=== PATIENT | male | born 1950 | race Caucasian/White ===

== ENCOUNTER 2020-11-04 23:28 | Inpatient (IN) | payer MEDICARE ==
[~2020-11-04] VITALS: Ht 180.3 cm; Wt 102.0 kg
[2020-11-04] MEDS ORDERED: ASPIRIN 325 MG TABLET PO ONE (23:45)
[2020-11-04] MEDS ORDERED: DEXAMETHASONE SOD PHOS 10 MG/ML VIAL. IVP ONE (23:45)
[2020-11-04] MEDS ORDERED: IOHEXOL 350 MG/ML 100 ML VIAL. IV ONE (23:45)
[2020-11-04] MEDS ORDERED: IV NORMAL SALINE 1,000ML 1,000 ML IV ONE (23:45)
--- NOTE | 2020-11-04 23:59 | EKG ---
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
[2020-11-05] MEDS ORDERED: ACETAMINOPHEN 500 MG TABLET PO ONE
[2020-11-05] MEDS ORDERED: PIPERACILLIN/TAZOBACTAM 4.5 GM in IV NORMAL SALINE 50ML 50 ML IV ONE
[2020-11-05] MEDS ORDERED: IV NORMAL SALINE 50ML 50 ML ONE (00:25)
[2020-11-05] MEDS ORDERED: PIPERACILLIN/TAZOBACTAM 4.5 GM VIAL IV ONE ×2 (00:25→00:26)
[2020-11-05 00:40] LABS: BASO % 1 % (0-3); EOS # 0.1 x10^3/uL (0.0-0.7); EOS % 1 % (0-3); HEMATOCRIT 42.5 % (39.0-53.0); HEMOGLOBIN 14.4 g/dL (13.0-17.5); LYMPH % 14 % (24-48); MEAN CORPUSCULAR HEMOGLOBIN 31 pg (25-35); MEAN CORPUSCULAR HGB CONC 34 g/dL (31-37); MEAN CORPUSCULAR VOLUME 92 fL (79-100); MONO # 0.7 x10^3/uL (0.0-1.1); MONO % 9 % (0-9); NEUT # 5.7 x10^3uL (1.8-7.7); NEUT % 76 % (31-73); PLATELET COUNT 202 x10^3/uL (140-400); RED BLOOD COUNT 4.61 x10^6/uL (4.30-5.70); RED CELL DISTRIBUTION WIDTH 14.2 % (11.5-14.5); WHITE BLOOD COUNT 7.5 x10^3/uL (4.0-11.0)
[2020-11-05 00:51] LABS: CALCIUM 8.8 mg/dL (8.5-10.1); CREATININE 0.9 mg/dL (0.7-1.3); GFR 82.9; POTASSIUM 3.9 mmol/L (3.5-5.1)
[2020-11-05 01:08] LABS: ALBUMIN/GLOBULIN RATIO 1.1 (1.0-1.7); MAGNESIUM 1.8 mg/dL (1.8-2.4); TOTAL BILIRUBIN 0.6 mg/dL (0.2-1.0); TOTAL PROTEIN 7.6 g/dL (6.4-8.2)
--- NOTE | 2020-11-05 01:25 | PHYS DOC ---
General Adult EDM: Chief Complaint: SHORTNESS OF BREATH HPI: HPI: Patient is a [age] year old [sex] who presents with [] Review of Systems: Review of Systems: Constitutional: Denies fever or chills Eyes: Denies redness or eye pain HENT: Denies nasal congestion or sore throat Respiratory: Denies cough or shortness of breath Cardiovascular: Denies chest pain or palpitations GI: Denies abdominal pain, nausea, or vomiting : Denies dysuria or hematuria Musculoskeletal: Denies back pain or joint pain Integument: Denies rash or skin lesions Neurologic: Denies headache, focal weakness or sensory changes Complete systems were reviewed and found to be within normal limits, except as documented in this note. Current Medications: Current Meds: Current Medications Medications (Trade) Dose Ordered Sig/Jessa Start Time Stop Time Status Last Admin Dose Admin Acetaminophen (Tylenol) 500 mg 1X ONCE 11/05/20 00:00 11/05/20 00:15 DC 11/05/20 00:29 500 MG Aspirin (Ysabel Aspirin) 325 mg 1X ONCE 11/04/20 23:45 11/05/20 00:15 DC 11/05/20 00:29 325 MG Dexamethasone Sodium Phosphate (Decadron) 10 mg 1X ONCE 11/04/20 23:45 11/05/20 00:15 DC 11/05/20 00:29 10 MG Iohexol (Omnipaque 350 Mg/ml) 100 ml 1X ONCE 11/04/20 23:45 11/05/20 00:15 DC Piperacillin Sod/ Tazobactam Sod (Zosyn) 4.5 gm STK-MED ONCE 11/05/20 00:26 11/05/20 00:26 DC Piperacillin Sod/ Tazobactam Sod 4.5 gm/Sodium Chloride 50 ml @ 100 mls/hr 1X ONCE 11/05/20 00:00 11/05/20 00:29 DC Sodium Chloride 50 ml @ As Directed STK-MED ONCE 11/05/20 00:25 11/05/20 00:25 DC Allergies: Allergies: Allergies Coded Allergies Type Severity Reaction Last Updated Verified No Known Drug Allergies 11/04/20 No Physical Exam: PE: Constitutional: Well developed, well nourished, no acute distress, non-toxic appearance HENT: Normocephalic, atraumatic Eyes: PERRL, EOMI, conjunctiva normal, no discharge Neck: Normal range of motion, no tenderness, supple Lungs & Thorax: No respiratory distress, equal chest rise and fall Abdomen: Soft, no tenderness Skin: Warm, dry, no erythema, no rash Back: No tenderness, no CVA tenderness Extremities: No tenderness, ROM intact, no edema Neurologic: Alert and oriented X 3, normal motor function, normal sensory function, no focal deficits noted Psychologic: Affect normal, judgment normal Current Patient Data: Labs: Laboratory Tests Test 11/04/20 23:42 White Blood Count 7.5 x10^3/uL (4.0-11.0) Red Blood Count 4.61 x10^6/uL (4.30-5.70) Hemoglobin 14.4 g/dL (13.0-17.5) Hematocrit 42.5 % (39.0-53.0) Mean Corpuscular Volume 92 fL (79-100) Mean Corpuscular Hemoglobin 31 pg (25-35) Mean Corpuscular Hemoglobin Concent 34 g/dL (31-37) Red Cell Distribution Width 14.2 % (11.5-14.5) Platelet Count 202 x10^3/uL (140-400) Neutrophils (%) (Auto) 76 % (31-73) H Lymphocytes (%) (Auto) 14 % (24-48) L Monocytes (%) (Auto) 9 % (0-9) Eosinophils (%) (Auto) 1 % (0-3) Basophils (%) (Auto) 1 % (0-3) Neutrophils # (Auto) 5.7 x10^3uL (1.8-7.7) Lymphocytes # (Auto) 1.0 x10^3/uL (1.0-4.8) Monocytes # (Auto) 0.7 x10^3/uL (0.0-1.1) Eosinophils # (Auto) 0.1 x10^3/uL (0.0-0.7) Basophils # (Auto) 0.0 x10^3/uL (0.0-0.2) Sodium Level 138 mmol/L (136-145) Potassium Level 3.9 mmol/L (3.5-5.1) Chloride Level 103 mmol/L (98-107) Carbon Dioxide Level 21 mmol/L (21-32) Anion Gap 14 (6-14) Blood Urea Nitrogen 14 mg/dL (8-26) Creatinine 0.9 mg/dL (0.7-1.3) Estimated GFR (Cockcroft-Gault) 82.9 BUN/Creatinine Ratio 16 (6-20) Glucose Level 103 mg/dL (70-99) H Lactic Acid Level 1.3 mmol/L (0.4-2.0) Calcium Level 8.8 mg/dL (8.5-10.1) Magnesium Level 1.8 mg/dL (1.8-2.4) Total Bilirubin 0.6 mg/dL (0.2-1.0) Aspartate Amino Transferase (AST) 35 U/L (15-37) Alanine Aminotransferase (ALT) 44 U/L (16-63) Alkaline Phosphatase 76 U/L (46-116) Creatine Kinase 388 U/L (39-308) H Creatine Kinase MB (Mass) 5.6 ng/mL (0.0-3.6) H Creatine Kinase MB Relative Index 1.4 % (0-4) Troponin I Quantitative < 0.017 ng/mL (0-0.055) ND-Vas-Z-Type Natriuretic Peptide 212 pg/mL (0-124) H Total Protein 7.6 g/dL (6.4-8.2) Albumin 4.0 g/dL (3.4-5.0) Albumin/Globulin Ratio 1.1 (1.0-1.7) Vital Signs: Vital Signs Date Time Temp Pulse Resp B/P (MAP) Pulse Ox O2 Delivery O2 Flow Rate FiO2 11/05/20 00:27 94 16 126/81 (96) 95 Nasal Cannula 4.0 11/04/20 23:28 103.0 EKG: EKG: @2336 Sinus tachycardia at 105bpm, occasional PVC, no ST elevation, QRS 78ms, QT/QTc 322/429ms Radiology/Procedures: Radiology/Procedures: PROCEDURE: CT ANGIOGRAPHY CHEST INDICATION: Reason: dyspnea, hypoxia, eval for PE Omni 350 100cc / Spl. Instructions: / History: COMPARISON: July 17, 2020 TECHNIQUE: Axial CT images obtained through the chest. Intravenous contrast utilized. An giogram 3D images processed per protocol. One or more of the following individualized dose reduction techniques were utilized for this examination: 1. Automated exposure control; 2. Adjustment of the mA and/or kV according to patient size; 3. Use of iterative reconstruction technique. FINDINGS: Severe emphysematous changes to the bilateral lungs including large bullous disease at the right greater than left lung apex. Dependent opacities at the left lung posteriorly with groundglass and nodular component. There are some reticulation at lung bases. There are some scattered prominent lymph nodes within the mediastinum. Coronary artery calcific atherosclerosis. Splenic calcified granulomas. Scattered calcific atherosclerosis without thoracic aortic aneurysm. Coronary artery calcific atherosclerosis. Prominent lymph nodes in the hilum. Degenerative changes of the spine. Osseous demineralization. No central pulmonary embolus IMPRESSION: No central pulmonary embolus. Severe emphysematous changes including large bulla at the right greater than left lung apex. Patchy opacity at the left lower lung could be infectious or inflammatory in nature but follow-up could be obtained to ensure that this resolves given that a portion of this is nodular in nature. Lymphadenopathy is seen within the bilateral pulmonary hilum. Degenerative changes of the spine as well as compression deformity at T8 again seen Electronically signed by: Urbano Florez MD (11/05/2020 2:01 AM) [id number] Heart Score: C/O Chest Pain: N/A Course & Med Decision Making: Course & Med Decision Making Pertinent Labs and Imaging studies reviewed. (See chart for details) Patient requiring admission for further evaluation and treatment. Discussed with Dr. Olivarez (hospitalist) who is in agreement with admission. Discussed findings and plan with patient, who acknowledges understanding and agreement. Dragon Disclaimer: Dragon Disclaimer: This electronic medical record was generated, in whole or in part, using a voice recognition dictation system. Departure Departure: Impression: Primary Impression: Respiratory failure Qualified Codes: J96.01 - Acute respiratory failure with hypoxia Additional Impressions: Suspected 2019 novel coronavirus infection Hypoxia COPD (chronic obstructive pulmonary disease) Qualified Codes: J44.9 - Chronic obstructive pulmonary disease, unspecified Disposition: 09 ADMITTED INPATIENT Admitting Physician: Omari Olivarez Condition: STABLE Referrals: PCP,UNKNOWN (PCP) COVID-19 Assessment COVID-19 Patient Risks: Age 65 or older: Yes Sign of co-morbidity: Yes Exp to person + for COVID: No Exp to PUI: No Travel from affected area: No Lower respiratory symptoms: Yes Fever: Yes Other: Yes PPE Use: Full PPE with N95 mask or PAPR: Yes Critical Care Time Critical care time was 30 minutes which includes time at bedside, spent in discussion of patient's care with specialists and/or family members, with interpretation of laboratory and/or radiological studies and is exclusive of procedures. LIZZETTE THAPA DO Nov 05, 2020 01:24
[2020-11-05 01:28] LABS: BACTERIA,URINE 0 /HPF (0-FEW); BILIRUBIN,URINE NEG (NEG); CLARITY,URINE CLEAR; COLOR,URINE YELLOW; GLUCOSE,URINE NEG (NEG); NITRITE,URINE NEG (NEG); RBC,URINE RARE /HPF (0-2); SQUAMOUS EPITHELIAL CELL,UR OCC /LPF; UROBILINOGEN,URINE 0.2 mg/dL (0.2 mg/dL); WBC,URINE 0 /HPF (0-4)
[2020-11-05] MEDS ORDERED: ONDANSETRON PF 4 MG/2 ML VIAL. IVP PRN (01:30)
[2020-11-05] MEDS ORDERED: IV NORMAL SALINE 1,000ML 1,000 ML IV SCH (01:30)
[2020-11-05] MEDS ORDERED: ACETAMINOPHEN 325 MG TABLET PO PRN (01:30)
[2020-11-05] MEDS ORDERED: CONTRAST GIVEN. MC PRN (01:30)
[2020-11-05 01:52] LABS: BGAS PH 7.4 (7.35-7.46)
--- NOTE | 2020-11-05 02:04 | RAD ---
INDICATION: Reason: dyspnea, hypoxia, eval for PE Omni 350 100cc / Spl. Instructions: / History: COMPARISON: July 17, 2020 TECHNIQUE: Axial CT images obtained through the chest. Intravenous contrast utilized. Angiogram 3D images proce ssed per protocol. One or more of the following individualized dose reduction techniques were utilized for this examinat ion: 1. Automated exposure control; 2. Adjustment of the mA and/or kV according to patient size; 3 . Use of iterative reconstruction technique. FINDINGS: Severe emphysematous changes to the bilateral lungs including large bullous disease at the right gre ater than left lung apex. Dependent opacities at the left lung posteriorly with groundglass and nodular component. There are some reticulation at lung bases. There are some scattered prominent lymph nodes within the mediastinum. Coronary artery calcific atherosclerosis. Splenic calcified granulomas. Scattered calcific atherosclerosis without thoracic aortic aneurysm. Coronary artery calcific atherosclerosis. Prominent lymph nodes in the hilum. Degenerative changes of the spine. Osseous demineralization. No central pulmonary embolus IMPRESSION: No central pulmonary embolus. Severe emphysematous changes including large bulla at the right greater than left lung apex. Patchy opacity at the left lower lung could be infectious or inflammatory in nature but follow-up cou ld be obtained to ensure that this resolves given that a portion of this is nodular in nature. Lymphadenopathy is seen within the bilateral pulmonary hilum. Degenerative changes of the spine as well as compression deformity at T8 again seen Electronically signed by: Urbano Florez MD (11/05/2020 2:01 AM) [id number]
--- NOTE | 2020-11-05 02:35 | NUR ---
The patient, ZION WOOD, 70 y/o, M admitted by CAROLYN HUSAIN MD, was given written information regarding hospital policies, unit procedures and contact persons. Valuables were checked and logged. Call light in reach.
[2020-11-05 03:00] VITALS: BP 144/97
[2020-11-05 05:54] VITALS: BP 141/87
[2020-11-05] MEDS ORDERED: CLOP75TA PO (09:53)
[2020-11-05] MEDS ORDERED: FLUT9.9S NS (09:53)
[2020-11-05] MEDS ORDERED: ASPI-630 PO (09:53)
[2020-11-05] MEDS ORDERED: FLUT1BLS3 IH (09:53)
[2020-11-05] MEDS ORDERED: ATOR40TA59 PO (09:53)
[2020-11-05] MEDS ORDERED: BISO5TAB8 PO (09:53)
[2020-11-05] MEDS ORDERED: MONT10TA80 PO (09:53)
[2020-11-05] MEDS ORDERED: ALBU2.5V8 IH (09:53)
[2020-11-05] MEDS ORDERED: PANT40TA3 PO (09:53)
[2020-11-05 11:26] VITALS: BP 151/78
[2020-11-05] MEDS ORDERED: ALBUTEROL SULFATE 2.5 MG/3 ML NEBU. IH PRN (14:15)
[2020-11-05] MEDS ORDERED: PIP/TAZO PER PHARMACY MC PRN (14:15)
--- NOTE | 2020-11-05 14:54 | HP ---
ADMIT DATE: 11/05/2020 HISTORY OF PRESENT ILLNESS: The patient is a 70-year-old male patient who presented to the emergency room of [facility] with a complaint of shortness of breath, cough with scanty yellowish to whitish sputum as well as shortness of breath that has worsened over the last 3 days. He apparently has completed his COVID-19 vaccination on 05/31/2020 and 06/19/2020 and apparently he has been complaining of shortness of breath for months now and was investigated by the social service technician including Dr. Lino at [facility] who recommended evaluation by the furniture decals inspector. He apparently has a stent placed in about May of this year; however, placement of the stent did not really improve his shortness of breath and he was seen by another social service technician at [facility] who again stated that his shortness of breath is not related to his COPD and recommended a second opinion. He has an appointment to be seen by a furniture decals inspector at [facility] in December of this year and was hoping to be seen by another furniture decals inspector sooner. He was extensively investigated in the Emergency Room and has had lab work, in fact, his white cell count was normal at 7000. His chemistry was unremarkable and his first set of cardiac enzyme was normal. His blood gases was also unremarkable. His CT angio of the chest showed that the patient has no central pulmonary embolus; however, she has severe emphysematous changes including large bulla at the right greater than left lung apex, patchy opacity at the left lower lung, could be infectious or inflammatory in nature, but followup could be obtained to ensure that this resolves given that a portion of this is nodular in nature. He has also had lymphadenopathy seen within the bilateral pulmonary hilum, degenerative changes of the spine as well as compression deformity at T8 thoracic vertebra. The patient was admitted with acute hypoxic respiratory failure, community-acquired pneumonia, COPD exacerbation and questionable suspected 2019 novel coronavirus infection, although this is probably less likely given that he is already vaccinated and the picture is more of a localized pneumonia rather than the diffuse nature nodular opacities that is seen with the COVID-19. PAST MEDICAL HISTORY: Significant for chronic obstructive pulmonary disease diagnosed about 10 years ago. He has hypertension, hepatitis C that was diagnosed 9 years ago and was treated with 12 weeks of treatment at [facility]. He is also known to have coronary artery disease status post PCI done twice, one about 12 years ago and one was this year. PAST SURGICAL HISTORY: Significant for PCI and stent deployment x2, tonsillectomy, appendectomy. ALLERGIES: He has no known drug allergies. MEDICATIONS: He is currently on following medications: He is on albuterol sulfate 1 puff 4 times a day, Plavix 75 mg once a day, atorvastatin calcium 40 mg at bedtime, bisoprolol 2.5 mg daily, aspirin 81 mg once a day. He is on Trelegy Ellipta 1 puff once a day, Singulair 10 mg once a day and Flonase 2 sprays to each nostril once a day, Protonix 40 mg once a day. FAMILY HISTORY: He has five brothers and three sisters, three of his older brothers have heart disease and all his three sisters are still alive. His father at age of 89 and mother at the age of 89, apparently has hypertension and CVA. SOCIAL HISTORY: He is , has a son and a daughter. He started smoking when he was 12 years old, continued to smoke, although he is now on Chantix and he has 1 pack for almost a week. He does not use any drugs or drink alcohol. 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 REVIEW OF SYSTEMS: The patient denied any blurring of vision, cataracts, glaucoma, or macular degeneration. Denied any earache, tinnitus or sensorineural deafness. Denied any nosebleed, stuffy nose or postnasal drip. Denied any sore throat, sore tongue, toothache, hoarseness of voice or difficulty swallowing. Denied any nausea, vomiting, diarrhea or constipation. Denied any hematemesis, melena or hematochezia. Denies any dysuria, frequency or hematuria. Did complain of chest pain, shortness of breath as well as orthopnea, cough with yellowish sputum, also had fever up to 103 Fahrenheit on admission. PHYSICAL EXAMINATION: GENERAL: On examining him, he looked well and was clearly in no apparent respiratory distress. There is no pallor, jaundice, cyanosis or thyromegaly. No jugular venous distention. No lower limb edema. VITAL SIGNS: His heart rate was 102, blood pressure was 142/83, temperature was 103, respiratory rate was 18 and oxygen saturation was 95% on 4 liters of oxygen. HEAD, EYES, EARS, NOSE, EYES, NOSE, AND THROAT: Normocephalic, atraumatic. NECK: Supple. HEART: Normal first and second heart sounds, no gallop or murmur. CHEST: Shows central trachea, equally reduced expansion, reduced air entry, vesicular breath sounds. I could not really appreciate any crepitation or rhonchi anteriorly. He has few crepitation bilaterally posteriorly. I could not appreciate any rhonchi. ABDOMEN: Distended, soft, nontender. NEUROLOGIC: He is awake, alert, responding appropriately. Cranial nerves intact. He moves extremities without difficulty. He ambulates without assistance or assistive devices. LABORATORY DATA: His white cell count was 7500, hemoglobin 14, hematocrit 42, MCV 92 and platelet count of 202,000. His chemistry showed a serum sodium 138, potassium 3.9, chloride 103, bicarbonate 21, anion gap of 14, BUN 14, creatinine 0.9. Estimated GFR was 82 mL per minute. His glucose 103, lactic acid was 1.3. Calcium was 8.8, magnesium was 1.8. Total bilirubin, AST, ALT, alkaline phosphatase were normal. Total protein was 7.6, albumin was 4. He has 2 sets of cardiac enzymes that ruled out myocardial infarction. His blood gas was 7.4, pCO2 of 30, pO2 of 78, bicarbonate 18 and oxygen saturation was 95% on FiO2 of 36%. His urinalysis essentially unremarkable. The CT angio of the chest showed no central pulmonary embolus., severe emphysematous changes including large bulla at the right greater than left apex, patchy opacity at the left lower lung, could be infectious, inflammatory in nature, but followup could be obtained to ensure that this resolves given that a portion of this is nodular in nature, lymphadenopathy is seen within the bilateral pulmonary hilum, degenerative changes of the spine as well as compression deformity of T8. PLAN: To continue with IV, reconcile all his medication. I will continue with IV antibiotic. Continue with inhalers and steroids and I will check urine for legionella and Streptococcus antigens. I would also consult the Cardiology team. We will get all his records from [facility] to be available to be reviewed by our furniture decals inspector. TEO DR: Cassie TID: [id number]
[2020-11-05 15:00] VITALS: BP 150/72
[2020-11-05] MEDS ORDERED: ALBUTEROL SULFATE 8GM INHALER. INH PRN (15:00)
[2020-11-05] MEDS: IPRATROPIUM/ALBUTEROL 20/100mcg/INH INHALER. INH SCH ×2 (16:00→20:00)
[2020-11-05] MEDS: PIPERACILLIN/TAZOBACTAM 3.375 GM in IV NORMAL SALINE 50ML 50 ML IV SCH ×2 (18:11→23:38)
--- NOTE | 2020-11-05 18:16 | CONS ---
DATE OF CONSULTATION: 11/05/2020 REASON FOR CONSULTATION: Shortness of breath. HISTORY OF PRESENT ILLNESS: The patient has a very prolonged cardiovascular history and he presented to the hospital in the setting of worsening dyspnea. He has severe bullous lung disease and follows with Dr. Lino at [facility] for the last 10 years or so. His dyspnea has been worsening over the last three to four months and actually was seen at [facility] due to his dyspnea and underwent a coronary angiogram and he reports that he had a PCI to the LAD. He also has a history of a previous PCI. Nonetheless, despite his PCI, he did not have any significant improvement. He also had got a second opinion at [facility] gyroscopic instrument mechanic and he was told that it is not his lung that was causing his breathing difficulty. He ultimately returned back to his ski instructor at [facility] who felt that his pulmonary disease was the likely source of his symptoms. Nonetheless, right now he reports compliance with his medications including Trelegy and antihypertensives and over the last few days has had worsening symptoms of cough and sputum production, which ultimately led him to be seen in the ER today. CT scan of the chest revealed significant bullous disease with possible pneumonia/inflammatory changes in the left apical lung and he was admitted for further evaluation and treatment. He has been started on antibiotics and steroid therapy. PAST MEDICAL HISTORY: 1. Severe COPD and bullous lung disease. 2. Hypertension. 3. Coronary artery disease, status post PCI. ALLERGIES: No known drug allergies. REVIEW OF SYSTEMS: Negative for 10 out of 14 systems reviewed, unless otherwise mentioned above in HPI. CURRENT CARDIOVASCULAR MEDICATIONS: Per medication administration record. PHYSICAL EXAMINATION: VITAL SIGNS: Afebrile, heart rate 110, blood pressure 115/68, pulse ox 91% at rest with 89% on ambulation. GENERAL: He is in no apparent distress. CARDIAC: Regular rate and rhythm without any obvious murmurs. LUNGS: Diffuse bilateral wheezing. ABDOMEN: Soft, nontender, nondistended. EXTREMITIES: No clubbing, cyanosis or edema. NEUROLOGIC: No focal deficits. MUSCULOSKELETAL: No trauma. DIAGNOSTIC STUDIES: Cardiac enzymes are unremarkable. CT angiogram of the chest is negative for any PE. IMPRESSION: 1. Dyspnea, likely secondary to acute chronic obstructive pulmonary disease exacerbation. 2. Known coronary artery disease, status post percutaneous coronary intervention. 3. Hypertension. 4. Chronic obstructive pulmonary disease. RECOMMENDATIONS: At this present time, appropriate therapy with antibiotics and steroids is imperative. We will try to obtain records from [facility]. Overall, I feel like there is a combination of mostly lung disease and heart disease that is causing his symptoms. I suspect at this current presentation, this is mostly pulmonary related given his severe bullous lung disease, hypoxemia and inflammatory changes of his lungs with negative cardiac enzymes. Thank you for this consultation. Case discussed with Dr. Lino and the patient extensively. COLT DR: NIMISHA/jackson TID: [id number]
[2020-11-05 19:21] VITALS: BP 146/86
[2020-11-05] MEDS: FLUTICASONE 50MCG/NASAL SPRAY 16GM BOTTLE. NS SCH (20:00)
[2020-11-05] MEDS: MONTELUKAST 10 MG TABLET. PO SCH (20:00)
[2020-11-05 22:33] VITALS: BP 151/90
--- NOTE | 2020-11-06 00:26 | NUR ---
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
[2020-11-06 02:41] VITALS: BP 135/72
--- NOTE | 2020-11-06 04:03 | NUR ---
NURSING NOTE Sleeps intermittently, easily awakened; denies any c/o at present, Sats 92-94% during sleep and at rest; plan to move pt to Rm 115 in MedSurg Unit at approx 0615 this a.m., verbalizes understanding; no voiced needs or concerns at this time.
[2020-11-06] MEDS: PIPERACILLIN/TAZOBACTAM 3.375 GM in IV NORMAL SALINE 50ML 50 ML IV SCH ×3 (05:35→18:05)
[2020-11-06 07:15] LABS: HEMATOCRIT 42.3 % (39.0-53.0); HEMOGLOBIN 14.2 g/dL (13.0-17.5); RED BLOOD COUNT 4.51 x10^6/uL (4.30-5.70); RED CELL DISTRIBUTION WIDTH 14.4 % (11.5-14.5); WHITE BLOOD COUNT 11.7 x10^3/uL (4.0-11.0)
[2020-11-06 07:33] LABS: ALBUMIN 3.6 g/dL (3.4-5.0); CALCIUM 8.9 mg/dL (8.5-10.1); CREATININE 0.9 mg/dL (0.7-1.3); GFR 82.9; POTASSIUM 4.3 mmol/L (3.5-5.1); TOTAL BILIRUBIN 0.4 mg/dL (0.2-1.0); TOTAL PROTEIN 7.3 g/dL (6.4-8.2)
[2020-11-06 08:02] VITALS: BP 163/96
[2020-11-06] MEDS: ATORVASTATIN CALCIUM 20 MG TABLET PO SCH (08:47)
[2020-11-06] MEDS: ASPIRIN CHEWABLE 81 MG TABLET. PO SCH (08:47)
[2020-11-06] MEDS: CLOPIDOGREL BISULFATE 75 MG TABLET PO SCH (08:47)
[2020-11-06] MEDS: ATENOLOL 25 MG TABLET PO SCH (08:47)
[2020-11-06] MEDS: PANTOPRAZOLE 40 MG TABLET. PO SCH (08:47)
[2020-11-06] MEDS: LACTOBACILLUS RHAMNOSUS GG 1 CAPSULE. PO SCH ×2 (08:47→21:14)
[2020-11-06] MEDS ORDERED: NON FORMULARY ITEM (Fluticasone/Umeclidin/Vilanter (Trelegy Ellipta 100-62.5-25) 1 EACH) IH SCH (09:00)
[2020-11-06] MEDS ORDERED: FLUTICASONE FUROATE 100mcg/INH ELLIPTA INHALER. INH SCH (09:00)
[2020-11-06] MEDS ORDERED: DEXAMETHASONE SOD PHOS 10 MG/ML VIAL. IV SCH (09:00)
--- NOTE | 2020-11-06 09:01 | PDOC ---
CARDIO Progress Notes Date & Time Date of Service DATE: 11/06/20 TIME: 08:58 Time of Evaluation 08:58 Subjective Notes Still SOA, wheezing. having thick secretions Vitals Vitals Vital Signs Date Time Temp Pulse Resp B/P (MAP) Pulse Ox O2 Delivery O2 Flow Rate FiO2 11/06/20 08:47 70 163/96 11/06/20 08:02 97.8 24 94 Room Air 11/05/20 05:54 2.0 Weight Weight [ ] Input and Output I.O. Intake and Output 11/06/20 07:00 Intake Total 350 ml Output Total 2850 ml Balance -2500 ml Intake Oral 300 ml Other 50 ml Output Urine Total 2850 ml Laboratory Labs Laboratory Tests Test 11/04/20 23:42 11/05/20 00:44 11/05/20 01:40 11/05/20 05:42 White Blood Count 7.5 x10^3/uL (4.0-11.0) Red Blood Count 4.61 x10^6/uL (4.30-5.70) Hemoglobin 14.4 g/dL (13.0-17.5) Hematocrit 42.5 % (39.0-53.0) Mean Corpuscular Volume 92 fL (79-100) Mean Corpuscular Hemoglobin 31 pg (25-35) Mean Corpuscular Hemoglobin Concent 34 g/dL (31-37) Red Cell Distribution Width 14.2 % (11.5-14.5) Platelet Count 202 x10^3/uL (140-400) Neutrophils (%) (Auto) 76 % (31-73) Lymphocytes (%) (Auto) 14 % (24-48) Monocytes (%) (Auto) 9 % (0-9) Eosinophils (%) (Auto) 1 % (0-3) Basophils (%) (Auto) 1 % (0-3) Neutrophils # (Auto) 5.7 x10^3uL (1.8-7.7) Lymphocytes # (Auto) 1.0 x10^3/uL (1.0-4.8) Monocytes # (Auto) 0.7 x10^3/uL (0.0-1.1) Eosinophils # (Auto) 0.1 x10^3/uL (0.0-0.7) Basophils # (Auto) 0.0 x10^3/uL (0.0-0.2) Sodium Level 138 mmol/L (136-145) Potassium Level 3.9 mmol/L (3.5-5.1) Chloride Level 103 mmol/L (98-107) Carbon Dioxide Level 21 mmol/L (21-32) Anion Gap 14 (6-14) Blood Urea Nitrogen 14 mg/dL (8-26) Creatinine 0.9 mg/dL (0.7-1.3) Estimated GFR (Cockcroft-Gault) 82.9 BUN/Creatinine Ratio 16 (6-20) Glucose Level 103 mg/dL (70-99) Lactic Acid Level 1.3 mmol/L (0.4-2.0) Calcium Level 8.8 mg/dL (8.5-10.1) Magnesium Level 1.8 mg/dL (1.8-2.4) Total Bilirubin 0.6 mg/dL (0.2-1.0) Aspartate Amino Transf (AST/SGOT) 35 U/L (15-37) Alanine Aminotransferase (ALT/SGPT) 44 U/L (16-63) Alkaline Phosphatase 76 U/L (46-116) Creatine Kinase 388 U/L (39-308) Creatine Kinase MB (Mass) 5.6 ng/mL (0.0-3.6) Creatine Kinase MB Relative Index 1.4 % (0-4) Troponin I Quantitative < 0.017 ng/mL (0-0.055) < 0.017 ng/mL (0-0.055) UW-Jpc-A-Type Natriuretic Peptide 212 pg/mL (0-124) Total Protein 7.6 g/dL (6.4-8.2) Albumin 4.0 g/dL (3.4-5.0) Albumin/Globulin Ratio 1.1 (1.0-1.7) Coronavirus (COVID-19)(PCR) Negative (NEGATIVE) Urine Collection Type Unknown Urine Color Yellow Urine Clarity Clear Urine pH 6.0 Urine Specific [place] 1.020 Urine Protein Neg (NEG-TRACE) Urine Glucose (UA) Neg mg/dL (NEG) Urine Ketones (Stick) Neg mg/dL (NEG) Urine Blood Trace (NEG) Urine Nitrite Neg (NEG) Urine Bilirubin Neg (NEG) Urine Urobilinogen Dipstick 0.2 mg/dL (0.2 mg/dL) Urine Leukocyte Esterase Neg (NEG) Urine RBC Rare /HPF (0-2) Urine WBC 0 /HPF (0-4) Urine Squamous Epithelial Cells Occ /LPF Urine Bacteria 0 /HPF (0-FEW) Blood Gas pH 7.40 (7.35-7.46) Blood Gas PCO2 30 mmHg (35-46) Blood Gas PO2 78 mmHg (71-100) Blood Gas HCO3 18 mmol/L (21-28) Arterial Bld O2 Saturation (Calc) 95 % (92-99) FiO2 36 % Test 11/06/20 06:42 White Blood Count 11.7 x10^3/uL (4.0-11.0) Red Blood Count 4.51 x10^6/uL (4.30-5.70) Hemoglobin 14.2 g/dL (13.0-17.5) Hematocrit 42.3 % (39.0-53.0) Mean Corpuscular Volume 94 fL (79-100) Mean Corpuscular Hemoglobin 32 pg (25-35) Mean Corpuscular Hemoglobin Concent 34 g/dL (31-37) Red Cell Distribution Width 14.4 % (11.5-14.5) Platelet Count 225 x10^3/uL (140-400) Sodium Level 142 mmol/L (136-145) Potassium Level 4.3 mmol/L (3.5-5.1) Chloride Level 107 mmol/L (98-107) Carbon Dioxide Level 24 mmol/L (21-32) Anion Gap 11 (6-14) Blood Urea Nitrogen 18 mg/dL (8-26) Creatinine 0.9 mg/dL (0.7-1.3) Estimated GFR (Cockcroft-Gault) 82.9 BUN/Creatinine Ratio 20 (6-20) Glucose Level 125 mg/dL (70-99) Calcium Level 8.9 mg/dL (8.5-10.1) Total Bilirubin 0.4 mg/dL (0.2-1.0) Aspartate Amino Transf (AST/SGOT) 29 U/L (15-37) Alanine Aminotransferase (ALT/SGPT) 39 U/L (16-63) Alkaline Phosphatase 61 U/L (46-116) Total Protein 7.3 g/dL (6.4-8.2) Albumin 3.6 g/dL (3.4-5.0) Albumin/Globulin Ratio 1.0 (1.0-1.7) Microbiology Micro Microbiology 11/04/20 Blood Culture - Preliminary, Resulted NO GROWTH AFTER 1 DAY... Physical Exams HEENT: Neck Supple W Full Motion Chest: Symmetric Lungs: Other (wheezing throughout ) Heart: RRR Abdomen: Soft N/T Extremities: No Edema Neurology: alert, oriented, follow commands Assessment Assessment 1. Acute on chronic respiratory failure with AE COPD. 2. Chronic diastolic CHF 3. CAD s/p PCI/stent to LAD in 2009 and PCI/stent to the RCA 05/28/20. Also noted with 90% of the OM1- managed medically 4. Hypertension; mildly elevated 5. Long-standing tobaccoism; presently working on cessation; on Chantix Recommendations Ongoing lung optimization Continue secondary prevention measures including DAPT with ASA/Plavix Continue statin therapy Hold BB with wheezing Would like to establish care with Dr. Alvarez; will arrange follow up appointment If no clinical improvement by tomorrow, would recommend transfer to [facility] for pulm eval. Supportive care Records from [facility] 05/28/20 1. LM: proximal 30% lesion 2. LAD: proximal LAD stent patent 3. LCx: There are minor luminal irregularities 4. 1st OM: Ostial lesion with 90% stenosis 5. RCA: Mid vessel 80% lesion. S/p PCI/stent placement with 0% residual Nuclear Stress Test 08/13/20 Summary: 1. Stress ECG conclusions; isolated ventricular ectopy. The stress ECG is negative for ischemia 2. Gated imaging: The calculated resting LVEF in 69%. During stress is 62% 3. Myocardial perfusion imaging demonstrates no convincing evidence of ischemia or infarct. 4. Perfusion images do not show any evidence of ischemia or infarct. However, there is abnormal TID ratio of 1.26 which is also apparent visually. This is the setting of small left ventricular. The significant of which is uncertain. ARON HOLLOWAY APRN Nov 06, 2020 09:01
[2020-11-06] MEDS ORDERED: ALBUTEROL SULFATE 2.5 MG/3 ML NEBU. NEB SCH (09:45)
[2020-11-06] MEDS: BUDESONIDE 0.5 MG/2 ML NEBU NEB SCH ×2 (10:04→20:37)
[2020-11-06 11:22] VITALS: BP 159/82
[2020-11-06] MEDS: DEXAMETHASONE SOD PHOS 10 MG/ML VIAL. IV SCH (14:30)
[2020-11-06 15:14] VITALS: BP 153/68
--- NOTE | 2020-11-06 15:48 | NUR ---
Nursing Note Patient has had an increased work of breathing today. Patient continues to be on room air sating 94%. Patient treatment continues, increase of steroids and nebulizer treatments initiated. Patient otherwise doing well. Continues to be independent in room. No other concerns at this time.
[2020-11-06] MEDS: IPRATRPIUM/ALBUTEROL 0.5/2.5MG 3 ML NEBU. NEB SCH ×2 (16:14→20:36)
[2020-11-06] MEDS ORDERED: ALBUTEROL SULFATE 2.5 MG/3 ML NEBU. NEB PRN (17:15)
[2020-11-06 19:47] VITALS: BP 154/68
[2020-11-06] MEDS: MONTELUKAST 10 MG TABLET. PO SCH (21:14)
[2020-11-06] MEDS: FLUTICASONE 50MCG/NASAL SPRAY 16GM BOTTLE. NS SCH (21:22)
[2020-11-07] MEDS: PIPERACILLIN/TAZOBACTAM 3.375 GM in IV NORMAL SALINE 50ML 50 ML IV SCH ×4 (00:23→17:26)
--- NOTE | 2020-11-07 01:45 | PN ---
DATE: 11/06/2020 SUBJECTIVE: The patient is resting, slightly propped up in bed, sleeping clearly with loud snoring. He was arousable. On questioning, he continued to complain of shortness of breath, has cough that is mostly dry. PHYSICAL EXAMINATION: GENERAL: When I examined him, there was no pallor, jaundice, cyanosis, or thyromegaly. No jugular venous distention. No lower limb edema. VITAL SIGNS: Her heart rate was 106, blood pressure was 159/82, temperature was 97.8, respiratory rate 24, and oxygen saturation was 94% on room air. HEAD, EYES, EARS, NOSE, AND THROAT: Normocephalic, atraumatic. NECK: Supple. HEART: Shows distant first and second heart sounds, no gallop, rub or murmur. CHEST: Shows central trachea, equally reduced expansion, reduced air entry with diffuse rhonchi bilaterally and basal crepitation, mostly in the left side posteriorly. ABDOMEN: Distended, soft, nontender. NEUROLOGIC: He was awake, alert, responding appropriately. All cranial nerves intact. He moves extremities without difficulty. His intake was 1250. Output was 350. LABORATORY DATA: His lab work this morning showed a white cell count of 11,700, hemoglobin 14.2, hematocrit 42, MCV 94, and platelet count 225,000. Her serum sodium was 142, potassium 4.3, chloride 107, bicarbonate 24, anion gap of 11, BUN 18, creatinine was 0.9. Estimated GFR was 82 mL per minute. Her glucose 125, calcium was 8.9. Total bilirubin, AST, ALT, alkaline phosphatase were normal. Total protein 7.3, albumin was 3.6. His COVID-19 by PCR was negative. So far, his blood cultures showed no growth. ASSESSMENT: 1. Qcble-bd-wforccd hypoxic-hypercapnic respiratory failure. 2. Community-acquired pneumonia. 3. Chronic obstructive pulmonary disease exacerbation. 4. Coronary artery disease status post PCI with stent deployment x2 to the left anterior descending and right coronary arteries. 5. Hypertension that seems to be reasonably, although suboptimally controlled. 6. Hepatitis C that was diagnosed 9 years ago and according to him, was treated with 12 weeks of treatment at [facility]. PLAN: My plan is, I added Mucinex 600 mg twice a day, increase his steroids to 10 mg of dexamethasone. We will continue with IV antibiotic. Continue with albuterol and Atrovent. Continue with the dual antiplatelets for his coronary artery disease. LAURO/SOCORRO DR: Cassie TID: [id number]
[2020-11-07] MEDS: IPRATRPIUM/ALBUTEROL 0.5/2.5MG 3 ML NEBU. NEB SCH ×3 (05:33→15:38)
[2020-11-07 06:00] VITALS: BP 145/76
[2020-11-07 06:57] LABS: BASO % 0 % (0-3); EOS % 0 % (0-3); HEMOGLOBIN 13.6 g/dL (13.0-17.5); LYMPH # 0.9 x10^3/uL (1.0-4.8); LYMPH % 9 % (24-48); MEAN CORPUSCULAR HEMOGLOBIN 32 pg (25-35); MEAN CORPUSCULAR HGB CONC 34 g/dL (31-37); MEAN CORPUSCULAR VOLUME 94 fL (79-100); MONO # 0.4 x10^3/uL (0.0-1.1); MONO % 4 % (0-9); NEUT # 8.6 x10^3uL (1.8-7.7); NEUT % 88 % (31-73); PLATELET COUNT 219 x10^3/uL (140-400); RED BLOOD COUNT 4.27 x10^6/uL (4.30-5.70); RED CELL DISTRIBUTION WIDTH 14.4 % (11.5-14.5); WHITE BLOOD COUNT 9.8 x10^3/uL (4.0-11.0)
[2020-11-07 07:24] LABS: CALCIUM 8.8 mg/dL (8.5-10.1); CREATININE 0.9 mg/dL (0.7-1.3); GFR 82.9
[2020-11-07] MEDS: ATORVASTATIN CALCIUM 20 MG TABLET PO SCH (08:53)
[2020-11-07] MEDS: LACTOBACILLUS RHAMNOSUS GG 1 CAPSULE. PO SCH ×2 (08:53→21:31)
[2020-11-07] MEDS: ASPIRIN CHEWABLE 81 MG TABLET. PO SCH (08:53)
[2020-11-07] MEDS: PANTOPRAZOLE 40 MG TABLET. PO SCH (08:54)
[2020-11-07] MEDS: ATENOLOL 25 MG TABLET PO SCH (08:54)
[2020-11-07] MEDS: DEXAMETHASONE SOD PHOS 10 MG/ML VIAL. IV SCH (08:54)
[2020-11-07] MEDS: CLOPIDOGREL BISULFATE 75 MG TABLET PO SCH (08:54)
[2020-11-07] MEDS: BUDESONIDE 0.5 MG/2 ML NEBU NEB SCH ×2 (09:27→21:32)
[2020-11-07 11:00] VITALS: BP 157/78
[2020-11-07 15:40] VITALS: BP 168/90
[2020-11-07 19:25] VITALS: BP 155/79
[2020-11-07] MEDS: FLUTICASONE 50MCG/NASAL SPRAY 16GM BOTTLE. NS SCH (21:00)
[2020-11-07] MEDS: MONTELUKAST 10 MG TABLET. PO SCH (21:31)
[2020-11-08] MEDS: PIPERACILLIN/TAZOBACTAM 3.375 GM in IV NORMAL SALINE 50ML 50 ML IV SCH ×3 (00:23→11:38)
[2020-11-08] MEDS: IPRATRPIUM/ALBUTEROL 0.5/2.5MG 3 ML NEBU. NEB SCH ×2 (05:33→11:41)
--- NOTE | 2020-11-08 06:19 | PN ---
DATE: 11/07/2020 SUBJECTIVE: The patient is sitting at the edge of the bed comfortably, in no apparent distress. He denied any shortness of breath at rest; however, he is short of breath with minimal exertion. Denied any chest pain. He continued to have cough that is mostly dry. PHYSICAL EXAMINATION: GENERAL: When I examined him this morning, he looked well and was clearly in no apparent respiratory distress. No pallor, jaundice, cyanosis or thyromegaly. No jugular venous distention. No lower limb edema. VITAL SIGNS: His heart rate was 68, blood pressure was 145/76, temperature was 98, respiratory rate was 18 and oxygen saturation was 95% on room air. HEAD, EYES, EARS, NOSE, AND THROAT: Normocephalic, atraumatic. NECK: Supple. HEART: Showed distant first and second heart sounds. No gallop or murmur. CHEST: Showed central trachea, equal bilateral chest expansion, air entry, vesicular breath sounds. I could not appreciate any rhonchi, but few crepitation mostly in the left side posteriorly. ABDOMEN: Distended, soft, nontender. NEUROLOGIC: He was grossly intact. His intake was 350 and output was 2850. LABORATORY DATA: As of this morning, his white cell count is 9800, hemoglobin 13.6, hematocrit 40, MCV 94 and platelet count 219,000. His chemistry showed a serum sodium of 143, potassium 4, chloride 107, bicarbonate 23, anion gap of 13, BUN 19, creatinine 0.9. Estimated GFR was 83 mL per minute. His glucose was 124, calcium was 8.8 and beta natriuretic peptide was 194. ASSESSMENT: 1. Acute on chronic hypoxic hypercapnic respiratory failure . 2. Community-acquired pneumonia. 3. Chronic obstructive pulmonary disease exacerbation. 4. Coronary artery disease, status post percutaneous coronary intervention with stent deployment x 2 to the left anterior descending and right coronary artery. 5. Hypertension. This seems to be reasonably controlled. 6. Hepatitis C that was diagnosed 9 years ago, and according to him, was treated with 12 weeks of treatment at [facility]. PLAN: My plan is to continue with IV antibiotics, continue with Mucinex, continue with dexamethasone, continue with IV antibiotic, continue with DuoNeb. I will arrange for a 6-minute walk and we will hopefully discharge him home tomorrow. LAURO/VINCE/ANDREW DR: LAURO/jackson TID: [id number]
[2020-11-08 06:27] VITALS: BP 151/83
--- NOTE | 2020-11-08 06:34 | NUR ---
Nursing note: Pt reported minimal relief from shortness of air, expressed displeasure at being D/C'd today if "still feeling so sick".
[2020-11-08] MEDS: LACTOBACILLUS RHAMNOSUS GG 1 CAPSULE. PO SCH (08:26)
[2020-11-08] MEDS: ASPIRIN CHEWABLE 81 MG TABLET. PO SCH (08:27)
[2020-11-08] MEDS: PANTOPRAZOLE 40 MG TABLET. PO SCH (08:27)
[2020-11-08] MEDS: CLOPIDOGREL BISULFATE 75 MG TABLET PO SCH (08:27)
[2020-11-08] MEDS: ATENOLOL 25 MG TABLET PO SCH (08:27)
[2020-11-08] MEDS: ATORVASTATIN CALCIUM 20 MG TABLET PO SCH (08:27)
[2020-11-08] MEDS: DEXAMETHASONE SOD PHOS 10 MG/ML VIAL. IV SCH (08:28)
[2020-11-08 10:39] VITALS: BP 168/90
[2020-11-08] MEDS: BUDESONIDE 0.5 MG/2 ML NEBU NEB SCH (11:41)
[2020-11-08] MEDS ORDERED: MONT10TA80 PO (13:44)
[2020-11-08] MEDS ORDERED: LEVO500T8 PO (13:44)
--- NOTE | 2020-11-08 13:47 | DISCH ---
HOME HEALTH DISCHARGE/MEDS DISCHARGE INFORMATION: Discharge Date: Nov 08, 2020 Final Diagnosis: Problems Medical Problems: (1) COPD (chronic obstructive pulmonary disease) Status: Acute (2) Hypoxia Status: Acute (3) Respiratory failure Status: Acute (4) Suspected 2019 novel coronavirus infection Status: Acute Condition on Discharge: Stable CODE STATUS: Code Status: Full HOME HEALTH: Face to Face: I certify this patient is under my care and that I, or a nurse practitioner or physician's medical lab assistant working with me, had a face to face encounter that meets the physician face to face encounter requirements with this patient on 11/08/2020 Medical Condition(s): COPD Halfway For: Admin/Educate Injections Physical Therapy For: Evalulation/Treatment Occupational Therapy For: Evaluation/Treatment Homebound Status Met By: Extreme weakness w/ amb. POST DISCHARGE ORDERS: Activity Instructions for Disc: Resume previous activity DIET AFTER DISCHARGE: Cardiac CERTIFICATION STATEMENT: Certification Statement: Based on the above finding, I certify that this patient is confined to the home and needs intermittent long-term care, physical therapy and/or speech therapy, or continues to need occupational therapy.~ This patient is under my care, and I have initiated the establishment of the plan of care.~ This patient will be followed by myself or a community physician who will periodically review the plan of care. DISCHARGE MEDICATIONS: Home Meds Active Scripts Levofloxacin (LEVOFLOXACIN) 500 Mg Tablet, 1 TAB PO DAILY for cap for 6 Days, #6 TAB Prov:AZUL MAN MD 11/08/20 Montelukast Sodium (MONTELUKAST SODIUM TABLET ) 10 Mg Tablet, 10 MG PO HS for FOR ASTHMA for 30 Days, #30 TAB 0 Refills Prov:AZUL MAN MD 11/08/20 Reported Medications Fluticasone/Umeclidin/Vilanter (Trelegy Ellipta 100-62.5-25) 1 Each Blst.w.dev, 1 EACH IH DAILY for shortness of air 11/05/20 Fluticasone Propionate (Flonase Allergy Relief) 9.9 Ml Mulino.susp, 2 SPRAYS NS HS for allergies, ML 11/05/20 Albuterol Sulfate (VENTOLIN HFA INHALER) 18 Gm Hfa.aer.ad, 1 PUFF IH QID PRN for FOR ASTHMA, EACH 0 Refills 11/05/20 Montelukast Sodium (MONTELUKAST SODIUM TABLET ) 10 Mg Tablet, 10 MG PO HS for FOR ASTHMA, TAB 0 Refills 11/05/20 Pantoprazole Sodium (PROTONIX) 40 Mg Tablet.dr, 1 TAB PO DAILY for gerd, #30 TAB 5 Refills 11/05/20 Aspirin (ASPIRIN) 81 Mg Tab.chew, 81 MG PO DAILY for blood thinner, TAB 11/05/20 Bisoprolol Fumarate (BISOPROLOL FUMARATE) 5 Mg Tablet, 2.5 MG PO DAILY for high blood pressure, TAB 11/05/20 Clopidogrel Bisulfate (CLOPIDOGREL) 75 Mg Tablet, 1 TAB PO DAILY for blood thinner, #90 TAB 1 Refill 11/05/20 Atorvastatin Calcium (ATORVASTATIN CALCIUM) 40 Mg Tablet, 1 TAB PO DAILY for high cholesterol, #30 TAB 5 Refills 11/05/20 AZUL MAN MD Nov 08, 2020 13:47
--- NOTE | 2020-11-08 14:24 | NUR ---
DISCHARGE ORDERS FAXED DISCHARGE ORDERS FAXED TO [facility]. CALLED TO LORENZO AT [facility] WHO WILL PAGE NURSE ANDREA. DISCHARGE ORDERS FAXED TO [facility]. CALLED ANSWERING SERVICE, SHE NOTIFIED SCRAPPER. JUAN M VANEGAS.
--- NOTE | 2020-11-08 14:43 | NUR ---
NURSING NOTE DISCHARGE PT DISCHARGED HOME WITH HOME HEALTH AND HOME OXYGEN AND SEVERAL PRESCRIPTIONS. PT GIVEN WRITTEN AND VERBAL DISCHARGE INSTRUCTIONS BY DELVIN RN, PT SENT HOME WITH [facility]. NO COMPLICATIONS. JUAN M VANEGAS.
--- NOTE | 2020-11-08 21:11 | DS ---
DATE OF DISCHARGE: 11/08/2020 HOSPITAL COURSE: The patient is a 70-year-old male patient who was admitted with worsening shortness of breath that has increased over the last 3 days. He has completed his COVID-19 vaccination in May of this year and apparently has been complaining of shortness of breath for months. He was evaluated by his offal roller, Dr. Lino at [facility] who recommended evaluation by lead burner supervisor. He apparently was seen by another offal roller at [facility] who again stated that his shortness of breath is not related to his COPD and recommended a second opinion. He has an appointment to be seen by lead burner supervisor at [facility]. Meanwhile, he was seen in the Emergency Room, was found to have severe emphysematous changes including large bulla at the right greater than left apex, patchy opacity at the left lower lung, could be infectious, inflammatory in nature and he also had lymphadenopathy seen within the bilateral pulmonary hilum. Therefore, the patient was admitted with community-acquired pneumonia, zceod-sm-[id number] hypoxic respiratory failure, COPD exacerbation. He was started on IV antibiotic, IV steroids. He was seen in consultation by the lead burner supervisor who felt that his shortness of breath is probably a combination of both his lung disease and heart disease, although his current presentation is most likely pulmonary related given his severe bullous lung disease and inflammatory change to his lung and negative cardiac enzymes. The patient has had a 6-minute walk and apparently required oxygen on exertion, and a decision was made to discharge him home with home health. He apparently requires 3 liters of oxygen on exertion, and a decision was made to discharge him home with home health. PHYSICAL EXAMINATION: GENERAL: When I saw him this afternoon, he was resting almost flat in bed, in no apparent respiratory distress. No pallor, jaundice, cyanosis or thyromegaly. No jugular venous distention. No limb edema. VITAL SIGNS: His heart rate was 75, blood pressure was 168/90, temperature was 97.7, respiratory rate was 20 and oxygen saturation was 94% on room air. HEAD, EYES, EARS, NOSE, AND THROAT: Normocephalic, atraumatic. NECK: Supple. HEART: Distant, normal first and second heart sounds. No gallop, rub or murmur. CHEST: Shows central trachea, equally reduced expansion, reduced air entry, vesicular breath sounds with a few scattered rhonchi and crepitation, mostly on the left side, posteriorly that have much improved. ABDOMEN: Soft, nontender. NEUROLOGIC: He was grossly intact. LABORATORY DATA: As of yesterday, his white cell count was 9800, hemoglobin 13, hematocrit 40, MCV 94 and platelet count of 219,000. His chemistry showed a serum sodium 143, potassium 4, chloride 107, bicarbonate 23, anion gap of 13, BUN 19, creatinine 0.9. Estimated GFR was 83 mL per minute. His glucose 124, calcium was 8.8. His blood gases showed a pH of 7.40, a pCO2 of 30, pO2 of 78, bicarbonate 18 and oxygen saturation was 95%. DISCHARGE MEDICATIONS: He was discharged home to continue on Mucinex 600 mg twice a day, DuoNeb in 3 mL by nebulizer 4 times a day, albuterol sulfate inhaler by nebulizer 2.5 mg every 4 hours. He was discharged on Pulmicort 0.5 mg twice a day, Lactobacillus rhamnosus twice a day, atenolol 25 mg daily, atorvastatin 40 mg at bedtime, Protonix 40 mg once a day, Plavix 75 mg once a day, aspirin 81 mg once a day, Flonase 2 sprays to each nostril once a day, montelukast 10 mg at bedtime, albuterol inhaler 2 puffs 4 times a day. He was discharged on Levaquin 500 mg once a day for 6 more days and also tapering course of prednisone in the form of 40 mg once a day for 3 days, 30 mg once a day for 3 days, 20 mg once a day for 3 days and 10 mg once a day for 3 days. FINAL DISCHARGE DIAGNOSES: 1. Caxef-pd-rdqydzh hypoxic hypercapnic respiratory failure. 2. Community-acquired pneumonia. 3. Chronic obstructive pulmonary disease exacerbation. 4. Coronary artery disease status post percutaneous coronary intervention with stent deployment to left anterior descending and right coronary arteries. 5. Hypertension, seems to be reasonably controlled. 6. Hepatitis C that was diagnosed 9 years ago and according to him, was treated with 12 weeks at [facility]. The patient will be discharged home with home health, should follow with his lead burner supervisor and offal roller. LAURO/REBECCA DR: Cassie TID: [id number]
== END 2020-11-08 14:45 | disposition home health service (06) | DRG 177 ==
LOC: ER 23:28 → ICU 11-05 01:48 → 1 SOUTH 11-06 06:30
PROVIDERS: ADMIT Hospitalist; ATTEND Internal Medicine
DX: J15.6 Pneumonia due to other Gram-negative bacteria (principal); J96.21 Acute and chronic respiratory failure with hypoxia; J96.22 Acute and chronic respiratory failure with hypercapnia; J44.0 Chronic obstructive pulmonary disease with (acute) lower respiratory infection; J44.1 Chronic obstructive pulmonary disease with (acute) exacerbation; I50.32 Chronic diastolic (congestive) heart failure; J15.9 Unspecified bacterial pneumonia; B19.20 Unspecified viral hepatitis C without hepatic coma; I11.0 Hypertensive heart disease with heart failure; F17.200 Nicotine dependence, unspecified, uncomplicated; E78.5 Hyperlipidemia, unspecified; I25.10 Atherosclerotic heart disease of native coronary artery without angina pectoris; Z95.5 Presence of coronary angioplasty implant and graft; Z82.49 Family history of ischemic heart disease and other diseases of the circulatory system; Z82.3 Family history of stroke; Z20.822 Contact with and (suspected) exposure to COVID-19
CPT/HCPCS: 36415; 36600; 71275; 80048; 80053; 81001; 82553; 82803; 83605; 83735; 83880; 84484; 85025; 85027; 87040; 93005; 94618; 94640; 96361; 96365; 96375; J1100; J2543; Q9967; U0003; 99291-25; J7030; J7613

== ENCOUNTER → 2021-09-04 | Outpatient (CLI) | payer MEDICARE ==
[~2021-09-04] MED LIST: ALBU2.5V8 IH; ASPI-630 PO; ATOR40TA59 PO; BISO5TAB8 PO; CLOP75TA PO; FLUT1BLS3 IH; FLUT9.9S NS; LEVO500T9 PO; MONT10TA80 PO; PANT40TA3 PO
--- NOTE | 2021-09-04 16:58 | RAD ---
Chest, PA and Lateral: Technique: PA and lateral views of the chest were obtained. History: Chest congestion. Comparison: None. Findings: The heart and pulmonary vasculature appear within normal limits. Hyperinflated lungs likely emphysem atous changes. Moderate prominent bilateral interstitial lung markings likely chronic interstitial ch anges.. The pleural margins are clear. Impression: Moderate prominent bilateral interstitial lung markings likely chronic interstitial changes. Bilatera l lung emphysematous changes. Electronically signed by: Jerod Miller MD (09/04/2021 4:55 PM) [id number]
== END ==
LOC: RAD 16:30
PROVIDERS: ATTEND Nurse Practitioner Family
DX: J43.9 Emphysema, unspecified (principal); R09.89 Other specified symptoms and signs involving the circulatory and respiratory systems
CPT/HCPCS: 71046